=== PATIENT | male | born 1970 | race Caucasian/White ===

== ENCOUNTER → 2021-05-13 15:26 | Outpatient (BNVA) | payer OTHER, SELFPAY | PROVIDERS: Family Provider Family Medicine; PCP Family Medicine; Visit Provider Family Medicine | DX: J32.0 Chronic maxillary sinusitis (principal) | CPT/HCPCS: 36415; 87635 ==

== ENCOUNTER → 2021-05-17 11:37 | Outpatient (BNVA) | payer OTHER, SELFPAY | PROVIDERS: Family Provider Family Medicine; PCP Family Medicine; Visit Provider Family Medicine | DX: J32.9 Chronic sinusitis, unspecified (principal); I10 Essential (primary) hypertension; G35 Multiple sclerosis; M06.9 Rheumatoid arthritis, unspecified | CPT/HCPCS: 85025; 87071; 87400; 87880 ==